=== PATIENT | female | born 1955 | race Caucasian/White ===

== ENCOUNTER 2017-01-13 22:03 | Emergency (ER) | payer SELFPAY ==
[~2017-01-13] VITALS: Ht 167.6 cm; Wt 55.0 kg
[2017-01-14] MEDS ORDERED: SODIUM CHLORIDE 0.9% 1,000 ML IV ONE (00:44)
[2017-01-14 00:57] LABS: BASOPHILS % 0.5 % (0.0-2.0); EOSINOPHILS % 0.1 % (0.0-5.0); HEMATOCRIT. 43.6 % (36.0-48.0); LYMPHOCYTES % 12.2 % (20.0-50.0); MEAN CORPUSCULAR VOLUME 95.9 fL (81.0-99.0); MEAN PLATELET VOLUME 8.8 fl (7.4-10.4); MONOCYTES % 5.4 % (2.0-8.0); NEUTROPHILS % 81.8 % (40.0-76.0); PLATELET 226 x1000/uL (130-400); RED BLOOD CELL COUNT 4.55 mill/uL (4.2-5.4); RED CELL DISTRIBUTION WIDTH 12.6 % (11.6-14.6)
[2017-01-14 01:01] LABS: CHLORIDE 107 mEq/L (98-107)
[2017-01-14 01:10] LABS: CARBON DIOXIDE 27 mEq/L (21-32)
[2017-01-14 02:44] VITALS: BP 120/82
== END 2017-01-14 03:31 | disposition home or self-care (01) ==
LOC: ER 22:03
DX: A08.4 Viral intestinal infection, unspecified (principal); F17.200 Nicotine dependence, unspecified, uncomplicated
CPT/HCPCS: 36415; 80053; 83690; 85025; 96360; 99284; J7030; Z7610